=== PATIENT | female | born 1955 | race African-American/Black ===

== ENCOUNTER 2016-12-15 06:36 | Inpatient (IN) | payer BC, OTHER ==
[2016-12-09 10:36] LABS: BASOPHILS 0.6 %; BASOPHILS ABSOLUTE 0.04 10/3/uL (0.0-0.16); EOSINOPHILS 3.5 %; EOSINOPHILS ABSOLUTE 0.23 10/3/uL (0.0-0.53); HEMATOCRIT 37.9 % (36.0-48.0); HEMOGLOBIN 12.7 g/dL (12.0-16.0); IMMATURE GRANULOCYTES 0.2 %; IMMATURE GRANULOCYTES ABSOLUTE 0.01 10/3/uL (0.0-0.11); LYMPHOCYTES 46.9 %; LYMPHOCYTES ABSOLUTE 3.08 10/3/uL (0.67-4.30); MEAN CORPUS HGB CONC 33.5 g/dL (32.0-36.0); MEAN CORPUSCULAR HEMOGLOB 28.3 pg (26.0-34.0); MEAN CORPUSCULAR VOLUME 84.6 fL (80-100); MEAN PLATELET VOLUME 8.6 fL (9.2-13.0); MONOCYTES 4.9 %; MONOCYTES ABSOLUTE 0.32 10/3/uL (0.21-1.20); NEUTROPHILS 43.9 %; NEUTROPHILS ABSOLUTE 2.89 10/3/uL (2.02-8.40); PLATELET COUNT 323 10/3/uL (150-400); RBC DISTRIBUTION WIDTH 13.1 % (12.0-16.0); RED CELL COUNT 4.48 10/6/uL (4.0-5.6); WHITE BLOOD CELLS 6.6 10/3/uL (4.5-10.5)
[2016-12-09 10:38] LABS: MANUAL DIFF NO %
[2016-12-09 10:40] LABS: PARTIAL THROMBO TIME 29.2 SEC (22.5-37.2); PROTIME (NOT ORD) 12.9 SEC (12.0-14.5)
[2016-12-09 10:55] LABS: A/G RATIO 1.1 (0.7-1.9); ALBUMIN 3.8 G/DL (3.5-5.0); ALKALINE PHOSPHATASE 81 U/L (45-117); BUN (BLOOD UREA NITROGEN) 13 MG/DL (6-23); CHLORIDE, SERUM 108 MMOL/L (96-112); CO2 (CARBON DIOXIDE) 28 MMOL/L (24-34); CREATININE 0.74 MG/DL (0.55-1.02); GFR AFRICAN AMERICAN 100 ML/MIN (>=60); GFR NON AFRICAN AMERICAN 86 ML/MIN (>=60); GLOBULIN 3.4 G/DL (2.5-4.1); POTASSIUM, SERUM 4.2 MMOL/L (3.5-5.3); SGOT(AST) 14 U/L (5-40); SGPT(ALT) 16 U/L (5-65); SODIUM, SERUM 144 MMOL/L (135-148); TOTAL BILIRUBIN 0.3 MG/DL (0-1.2); TOTAL PROTEIN 7.2 G/DL (6.0-8.5)
[2016-12-09 10:57] LABS: GLUCOSE, SERUM 108 MG/DL (60-99)
[2016-12-09 11:55] LABS: ASCORBIC ACID (UR NOT ORDER) NEG (NEG); BILIRUBIN, URINE NEGATIVE (NEG); KETONE, URINE NEGATIVE (NEG); LEUKOCYTE ESTERASE(NOT OR SMALL (NEG); WBC (NOT ORDERED) (RFLEX) 11 (0-5)
--- NOTE | ~2016-12-15 | OP ---
Record Of Operation [facility] [address] [place]. [address] NAME: SUMAN FIGUEROA : 51 STATUS : ADM IN PAT#: [id number] AGE: 61 ADM/REG DATE : 12/15/16 MR#: [id number] REPORT SERV DATE: 12/15/16 DICTATED BY: BJORN PERALTA DATE: 12/15/16 REPORT STATUS : Draft TRANSCRIBED BY: MODL DATE: 12/15/16 DATE OF PROCEDURE: 12/15/2016 PREOPERATIVE DIAGNOSIS: Right knee arthritis with valgus. POSTOPERATIVE DIAGNOSIS: Right knee arthritis with valgus. PROCEDURE PERFORMED: Right total knee arthroplasty. SURGEON: Bjorn Peralta M.D. LEASE ADMINISTRATOR: Maria De Jesus Parra. ANESTHESIA: Spinal with sedation, adductor block, and local infusion. PROCEDURE IN DETAIL: The patient is clearly identified and after obtaining informed consent is brought to the operating room at [facility] where anesthesia is induced uneventfully with excellent anesthetic effect. Subsequently, the affected extremity is prepped and draped in the usual manner and after an appropriate time-out procedure is performed, via an anterior approach, the skin is divided, fascial planes are elevated, paramedial approach to the knee is made. The structures themselves are elevated, excised, and debrided were appropriate, whereupon the patella is carefully everted, calipered, and planed and with the size and type being reproduced with the appropriate-size patella, trialing is performed successfully. At this point, the patella is then carefully subluxed laterally, the knee is flexed, osteophytes around the distal femur are removed, followed by the ACL being divided. The femoral canal is entered and vented, at which point with the intramedullary guide being utilized, the distal femoral cut is made. At this point, the tibia is carefully subluxed anteriorly. The surrounding soft tissues to the tibia are protected with Hohmann retractors, at which point the extramedullary guide is utilized to perform the proximal tibial cut and after cleansing these tissues, the spacer block is utilized in extension to confirm excellent extension, stability, and alignment. The guiding pins are then all carefully removed and the knee is then flexed. The femur is sized, whereupon the anterior, posterior, chamfer, and box cuts are made appropriately. The proximal tibia then is assessed. Osteophytes and surrounding soft tissues are removed and debrided were appropriate. Posterior osteophytes are removed as well. The menisci are excised and thus concluding trialings performed successfully. The proximal tibia then is carefully prepared utilizing proper cement technique. The permanent implants have been carefully placed into position uneventfully where upon copious irrigations performed, the permanent tibial implants applied and thus concluded. The joint was then copiously irrigated, at which point it is closed carefully in layers including Vicryl and aniceto for the skin, at which point Aquacel sterile dressing is applied. The patient is allowed to awaken and is transferred to the bed and subsequently to the recovery room in stable condition having tolerated the procedure well. ESTIMATED BLOOD LOSS: 50 mL. Record Of Operation [address] [address] NAME: SUMAN FIGUEROA : 51 STATUS : ADM IN [facility]#: [id number] AGE: 61 ADM/REG DATE : 12/15/16 MR#: [id number] REPORT SERV DATE: 12/15/16 DICTATED BY: BJORN PERALTA DATE: 12/15/16 REPORT STATUS : Draft TRANSCRIBED BY: RELL DATE: 12/15/16 FLUIDS: 800 mL. TOURNIQUET TIME: 45 minutes. PATHOLOGY: Sent specimen. MICROBIOLOGY: None. COMPLICATIONS: None. SPONGE AND NEEDLE COUNTS: Reportedly correct. ANTIBIOTICS: Administered appropriately preoperatively and ordered to be discontinued within 23 hours. IMPLANTS: Attune knee by DePuy, femur 6 standard, tibia 5, patella 38, polyethylene 6/6. CLOVER/RELL Bjorn Peralta M.D. / [id number] CC: Bjorn Peralta M.D.
--- NOTE | ~2016-12-15 | DS ---
Discharge Summary [facility] [address] [place]. [address] NAME: SUMAN FIGUEROA : 51 STATUS : DIS IN PAT#: [id number] AGE: 61 ADM/REG DATE : 12/15/16 MR#: [id number] REPORT SERV DATE: 12/25/16 DICTATED BY: BJORN PERALTA DATE: 12/24/16 REPORT STATUS : Draft TRANSCRIBED BY: RELL DATE: 12/24/16 Data Collection from hospitalization DISCHARGE DIAGNOSES: 1. Right knee arthritis with valgus. 2. Hypertension. 3. Gastroesophageal reflux disease. 4. History of lap band. CONSULTATIONS: None. PROCEDURES PERFORMED: Right total knee arthroplasty, 12/15/2016. PATHOLOGY: Right knee joint arthroplasty, degenerative joint disease. No evidence of an infectious or neoplastic process. MEDICATIONS: Colace 100 mg twice daily, ferrous sulfate 300 mg with breakfast and supper, Cozaar 50 mg at bedtime, Theragran tablet without minerals one daily, Lopressor 25 mg at bedtime, Demadex 20 mg at bedtime, Coumadin as directed, Ultram 25 mg as needed, Valium 2 mg every 6 hours as needed. CONDITION AT DISCHARGE: Upon discharge her incision looked good and she did appear to be doing well. DISPOSITION: She had been discharged home to continue a regular diet with activity as discussed. She was to follow up with Dr. Jewel Lee at the [place] office on 12/30/2016. Follow up for physical therapy at the [place] office on 01/17/2017 and follow up for lab work every Wednesday or Wednesday while on Coumadin at the [place] office beginning on 12/22/2016. HOSPITAL COURSE: This 61-year-old female had been seen in the office with right knee pain. She stated that she had been taking Mobic with some relief. She stated that she did have tramadol that she uses intermittently for discomfort. She stated that she was now having more popping in her knee with increased pain. She stated that she had trouble with standing from prolonged sitting. She stated that she did have trouble walking distances as she used to be able to. She stated that she was also having trouble with stairs, taking them one at a time. She previously had cortisone injections as well as Monovisc with only short period of relief. Surgery had been discussed with the patient, she was agreeable to proceed. She was therefore admitted for surgery and further treatment. Upon admission to the hospital, she had been taken to the operating room where she did undergo the above procedure. She had tolerated this well and was transferred to the recovery room. On postop day #1, she was afebrile and her vital signs were stable. She did appear to be doing well. She had been evaluated by Physical Therapy. On postop day #2, she did remain in stable condition. However, she did state that muscle spasms were still happening, but medications were helping. Her hemoglobin was at 10.9, hematocrit 32.4. INR 1.1. She was continued on supportive care. On postop day #3, she did remain in stable condition and did state that spasms in the right leg were much better. As she continued to do well she was then discharged with the above instructions. Discharge Summary [address] [address] NAME: SUMAN FIGUEROA : 51 STATUS : DIS IN PAT#: [id number] AGE: 61 ADM/REG DATE : 12/15/16 MR#: [id number] REPORT SERV DATE: 12/25/16 DICTATED BY: BJORN PERALTA DATE: 12/24/16 REPORT STATUS : Draft TRANSCRIBED BY: RELL DATE: 12/24/16 Information collected by: Chano MaguireI.T. I submit the above information as my discharge summary. GOMEZ/RELL Bjorn Peralta M.D. / [id number] CC: Ilene Montejo M.D.
[~2016-12-15 06:36] MED LIST: COZ50 PO; DEMA20 PO; LOP25 PO; MOBIC15 MG PO; ULTRAM50 PO
[2016-12-16 06:27] LABS: HEMOGLOBIN 10.9 g/dL (12.0-16.0)
[2016-12-16 06:29] LABS: HEMATOCRIT 32.4 % (36.0-48.0)
[2016-12-16 06:33] LABS: INTERNATIONAL NORMAL RATI 1.1 UNITS (-); PROTIME (NOT ORD) 13.9 SEC (12.0-14.5)
[2016-12-16 06:40] LABS: CALCIUM, SERUM 8.7 MG/DL (8.5-10.4); CHLORIDE, SERUM 102 MMOL/L (96-112); CO2 (CARBON DIOXIDE) 27 MMOL/L (24-34); GFR AFRICAN AMERICAN 53 ML/MIN (>=60); GFR NON AFRICAN AMERICAN 46 ML/MIN (>=60); GLUCOSE, SERUM 114 MG/DL (60-99); POTASSIUM, SERUM 3.9 MMOL/L (3.5-5.3); SODIUM, SERUM 140 MMOL/L (135-148)
[2016-12-16 06:43] LABS: BUN (BLOOD UREA NITROGEN) 21 MG/DL (6-23); CREATININE 1.25 MG/DL (0.55-1.02)
[2016-12-17 07:09] LABS: HEMATOCRIT 30.5 % (36.0-48.0); HEMOGLOBIN 10.4 g/dL (12.0-16.0)
[2016-12-17 07:16] LABS: INTERNATIONAL NORMAL RATI 1.3 UNITS (-)
[2016-12-18 05:38] LABS: CALCIUM, SERUM 8.8 MG/DL (8.5-10.4); CHLORIDE, SERUM 99 MMOL/L (96-112); CO2 (CARBON DIOXIDE) 30 MMOL/L (24-34); CREATININE 0.87 MG/DL (0.55-1.02); GFR AFRICAN AMERICAN 82 ML/MIN (>=60); GFR NON AFRICAN AMERICAN 71 ML/MIN (>=60); GLUCOSE, SERUM 112 MG/DL (60-99); POTASSIUM, SERUM 3.6 MMOL/L (3.5-5.3); SODIUM, SERUM 136 MMOL/L (135-148)
[2016-12-18 05:42] LABS: INTERNATIONAL NORMAL RATI 1.6 UNITS (-)
[2016-12-18 05:45] LABS: PROTIME (NOT ORD) 18.5 SEC (12.0-14.5)
[2016-12-18 05:52] LABS: BUN (BLOOD UREA NITROGEN) 11 MG/DL (6-23)
[2016-12-18 05:54] LABS: HEMATOCRIT 29.7 % (36.0-48.0); HEMOGLOBIN 9.9 g/dL (12.0-16.0)
[2016-12-18] MEDS ORDERED: DSS PO (10:20)
[2016-12-18] MEDS ORDERED: V2 PO (10:21)
[2016-12-18] MEDS ORDERED: MULTIPLE VIT PO (10:21)
== END 2016-12-18 12:46 | disposition home or self-care (01) | DRG 470 ==
LOC: SDC/OF 06:36 → PACU 10:43 → 3JRC 12:46
PROVIDERS: Orthopaedic Surgery
PROC: 3E0T3CZ (ICD-10-PCS; 2016-12-15)
PROC: 0SRC0J9 Replacement of Right Knee Joint with Synthetic Substitute, Cemented, Open Approach (ICD-10-PCS; principal; 2016-12-15 07:30)
DX: M17.11 Unilateral primary osteoarthritis, right knee (principal); Z68.41 Body mass index [BMI] 40.0-44.9, adult; I10 Essential (primary) hypertension; K21.9 Gastro-esophageal reflux disease without esophagitis; E66.9 Obesity, unspecified; Z79.899 Other long term (current) drug therapy; Z88.5 Allergy status to narcotic agent; Z88.2 Allergy status to sulfonamides; Z91.013 Allergy to seafood; Z80.8 Family history of malignant neoplasm of other organs or systems
CPT/HCPCS: 36415; 71020; 80048; 80053; 81001; 85014; 85018; 85025; 85610; 85730; 86850; 86900; 86901; 87086; 87641; 88305; 88311; 93005; 97110-GP; 97116-GP; 97150-GP; 97161-GP; 97165-GO; A9270-GY; C1776; J0690; J1885; J2250; J2274; J2370; J2405; J2795; J3010